=== PATIENT | female | born 1980 | race Hispanic/Latino ===

== ENCOUNTER 2019-12-01 10:26 | Day surgery (SDC) | payer BC ==
[~2019-12-01] VITALS: Ht 170.2 cm; Wt 118.6 kg
[2019-12-01] VITALS (21 sets, daily range): BP systolic 100–124; BP diastolic 52–82
[2019-12-01] MEDS ORDERED: LACTATED RINGERS 1000ML 1,000 ML IV SCH (11:15)
[2019-12-01 11:33] LABS: BASOPHILS % (AUTO) 0.4 % (0.0-5.0); EOSINOPHILS % (AUTO) 1.1 % (0.0-8.0); LYMPHOCYTES % (AUTO) 27.4 % (21.0-51.0); MEAN CORPUSCULAR HEMOGLOBIN 31.8 pg (27.0-33.0); MEAN CORPUSCULAR HGB CONC 34.1 g/dL (32.0-36.0); MEAN CORPUSCULAR VOLUME 93.2 fL (79-99); MONOCYTES % (AUTO) 5.2 % (3.0-13.0); NEUTROPHILS % (AUTO) 65.7 % (40.0-77.0); PLATELET COUNT (AUTO) 253 K/uL (130-400); RED CELL DISTRIBUTION WIDTH 12.4 % (11.0-15.5); WHITE BLOOD COUNT (AUTO) 5.6 K/uL (4.8-10.8)
[2019-12-01] MEDS ORDERED: LEVO137T2 PO (11:51)
[2019-12-01] MEDS ORDERED: CALC600T15 PO (11:52)
[2019-12-01] MEDS ORDERED: SCOPOLAMINE HYDROBROMIDE 1 EACH ADH..PATCH TD ONE (11:53)
[2019-12-01] MEDS ORDERED: ONDANSETRON HCL 4 MG/2 ML VIAL ONE ×2 (12:39→14:17)
[2019-12-01] MEDS ORDERED: LIDOCAINE PF 2% 5ML ABBOJECT ONE (12:39)
[2019-12-01] MEDS ORDERED: DEXAMETHASONE SOD PHOSPHATE 10MG/ML 1ML VIAL ONE (12:39)
[2019-12-01] MEDS ORDERED: MIDAZOLAM HCL 1 MG/ML 2ML VIAL ONE (12:39)
[2019-12-01] MEDS ORDERED: FENTANYL CITRATE PF 50 MCG/1 ML 2ML VIAL ONE (12:40)
[2019-12-01] MEDS ORDERED: PROPOFOL 10 MG/ML 20ML VIAL IV ONE (12:40)
[2019-12-01] MEDS ORDERED: DEXAMETHASONE SOD PHOSPHATE 4 MG/ML 1ML VIAL ONE (14:17)
[2019-12-01] MEDS ORDERED: OXYTOCIN 10 USP UNITS/ML ONE ×2 (14:32→14:38)
[2019-12-01] MEDS ORDERED: VASOPRESSIN 20 UNITS/ML 1ML VIAL ONE (14:35)
[2019-12-01] MEDS ORDERED: KETOROLAC TROMETHAMINE 30MG/ML ONE (14:51)
--- NOTE | 2019-12-01 17:15 | NUR ---
Assessment Received pt from PACU staff Vicky RN per Vicky rhogam shot given in PACU. Citlali pad in place scant bleeding noted. Abdomen soft to touch. Call light within reach. Denies pain at this time. Pitocin in IV bag infusing at this time.
--- NOTE | 2019-12-01 17:46 | NUR ---
Discharge Pitocin completed. Citlali pad in place with no bleeding noted. Pt denies any pain. Instructions given, no questions at this time.
== END 2019-12-01 17:46 | disposition home or self-care (01) ==
LOC: DAH 10:26
DX: O02.1 Missed abortion (principal); N85.4 Malposition of uterus; E89.0 Postprocedural hypothyroidism; Z98.890 Other specified postprocedural states; Z98.891 History of uterine scar from previous surgery; Z88.0 Allergy status to penicillin; Z82.49 Family history of ischemic heart disease and other diseases of the circulatory system; Z79.899 Other long term (current) drug therapy; Z79.890 Hormone replacement therapy; Z85.72 Personal history of non-Hodgkin lymphomas; Z11.59 Encounter for screening for other viral diseases
CPT/HCPCS: 36415; 59820; 83033; 84443; 85025; 86850; 86900; 86901; 87426; A4215; A4221; A4222; A4223; A4351; A4663; J1100 ×2; J1885; J2001; J2250; J2405 ×2; J2590 ×2; J2704; J2791; J3010; J7030; J7120 ×2; J3490

== ENCOUNTER 2020-10-18 10:06 | Observation (INO) | payer BC ==
[~2020-10-18] VITALS: Ht 170.2 cm; Wt 129.3 kg
[~2020-10-18 10:06] MED LIST: CALC-1125 PO; LEVO137T2 PO
[2020-10-18 10:08] VITALS: BP 113/69
[2020-10-18 10:44] LABS: APPEARANCE,URINE Clear (CLEAR); BILIRUBIN,URINE Negative (NEGATIVE); COLOR,URINE Dark Yellow (YELLOW); GLUCOSE, URINE (UA) Negative (NEGATIVE); KETONES,URINE Negative (NEGATIVE); LEUKOCYTE ESTERASE ,URINE Trace (NEGATIVE); NITRATE,URINE Negative (NEGATIVE); OCCULT BLOOD,URINE Negative (NEGATIVE); PH,URINE 6.5 (5.0-8.0); PROTEIN,URINE Negative (NEGATIVE)
[2020-10-18 11:37] LABS: BACTERIA,URINE Rare /HPF (None Seen); MUCUS,URINE Rare LPF (None Seen); RBC,URINE 0-1 /HPF (0-1); SQUAMOUS EPITHELIAL CELL,UR Few /HPF (0-2); WBC,URINE 0-1 /HPF (0-1)
== END 2020-10-18 11:35 | disposition home or self-care (01) ==
LOC: EDH 10:06 → LDH 10:07
PROVIDERS: ADMIT Specialist; ATTEND Specialist
DX: O26.893 Other specified pregnancy related conditions, third trimester (principal); R10.9 Unspecified abdominal pain; O99.891 Other specified diseases and conditions complicating pregnancy; M54.5 Low back pain; O09.523 Supervision of elderly multigravida, third trimester; Z3A.35 35 weeks gestation of pregnancy; Z88.0 Allergy status to penicillin
CPT/HCPCS: 59025; 81001; G0378